=== PATIENT | male | born 1995 | race Caucasian/White ===

== ENCOUNTER 2018-11-06 00:57 | Emergency (ER) | payer OTHER ==
[~2018-11-06] VITALS: Ht 182.9 cm; Wt 70.3 kg
--- NOTE | 2018-11-06 01:01 | NUR ---
PT [facility]. TAKEN TO BED 5
--- NOTE | 2018-11-06 01:03 | NUR ---
Dr. Sanhcez evaluating patient at bedside.
[2018-11-06 01:07] VITALS: BP 126/76
[2018-11-06] MEDS ORDERED: NACL 0.9% 1,000 ML IV ONE (01:10)
--- NOTE | 2018-11-06 01:13 | NUR ---
PT REFUSING ASSESSMENT FROM RN, DR. MAYA MADE AWARE.
--- NOTE | 2018-11-06 01:20 | NUR ---
PT REFUSING BLOOD DRAW AND EKG. DR. MAYA AWARE. PT UNCOOPERATIVE, NOT COMBATIVE AT THIS TIME. REFUSING TEST AND REQUESTING TO CALL FATHER.
--- NOTE | 2018-11-06 01:24 | NUR ---
REPORT GIVEN TO LUCINA ACUNA.
--- NOTE | 2018-11-06 01:29 | NUR ---
PT AMBULATING FREELY WITHOUT ASSISTANCE
--- NOTE | 2018-11-06 01:37 | NUR ---
Pt uncooperative, trying to leave ED. Ryann MACKAY also at bedside speaking with patient to calm him down. Patient made aware that Irene Director of [facility] will be sending an uber. Pt extremely uncooperative and refusing to taking designated uber. Pt spoke with Irene and obtained consent to send patient back to facility.
--- NOTE | 2018-11-06 01:39 | NUR ---
FAMILY AT BEDSIDE
[2018-11-06 01:52] VITALS: BP 126/76
--- NOTE | 2018-11-06 01:52 | NUR ---
Pt discharged in care to parents. Pt left yelling. Pt ambulatory with steady gait. Discharge instructions given to patient's father. Pt refused to sign. Refused to receive discharge instructions.
== END 2018-11-06 01:52 | disposition home or self-care (01) ==
LOC: MED 00:57
DX: F10.129 Alcohol abuse with intoxication, unspecified (principal)
CPT/HCPCS: 99283